=== PATIENT | male | born 1955 | race Caucasian/White ===

== ENCOUNTER 2019-09-10 07:57 | Outpatient (CLI) | payer MEDICARE, SELFPAY ==
--- NOTE | 2019-09-22 07:01 | SLEEP_ITS ---
CPAP Titration DATE OF STUDY: 09/10/2019 ORDERING PROVIDER: Santa Shanks, nurse practitioner. REASON FOR STUDY: Obstructive sleep apnea syndrome. HISTORY: This patient is a 64-year-old male, 70 inches tall, weighing 331 pounds with a body mass index of 47.5. On 08/14/2019, he underwent a basic nocturnal polysomnogram for complaints of loud snoring and gasping for breath at night. He did not meet criteria during the baseline study to proceed with CPAP. There is a prior history of wearing CPAP. His AHI on this most recent study was 69.8, mainly obstructive events with a low sleep efficiency. He had very little REM. He did not have supine sleep. He proceeds with CPAP on this test. MEDICAL COMORBIDITIES: Acid reflux, hyperlipidemia, hypertension, depression. MEDICATIONS: 1. Omeprazole 20 mg a day. 2. Atorvastatin 40 mg a day. 3. Lisinopril 20 mg a day. 4. Lorazepam 1 mg p.r.n. HABITS: There is a history of smoking tobacco. Five caffeinated beverages a day. Two alcoholic beverages a day. DESCRIPTION OF THE STUDY: On the [place] Sleepiness Scale, his score was 17. This was conducted as an attended CPAP titration using the [employer] multiple channel system including EOG, EEG, submental EMG, EKG, nasal and oral airflow using thermistors and nasal pressure sensors, chest and abdominal belts, body position data, and pulse oximetry. The study was scored using [facility] guidelines. Duration of the study was 424.7 minutes. The sleep time was 182.4 minutes. He had low sleep efficiency once again of 42.9%. Sleep latency was prolonged 57.3 minutes. The patient noted that he normally goes to bed at 2 a.m., which is not conducive to having a sleep study in the lab as the bedtime is around 10 p.m. regardless of whether or not a sleeping pill is taken. There was no mention of taking a sleeping pill. The REM latency was also prolonged at 237 minutes. He had 27 awakenings and spent 50.4% of the test, 185 minutes awake after sleep onset. Sleep architecture was abnormal with 9.9% stage 1 sleep, 34.7% stage 2 sleep. No stage 3 sleep and only 5% stage REM, 18.5 minutes. Sleep was fragmented with a prolonged sleep onset, prolonged REM latency. Significant wake throughout the study and fragmented sleep. He did not spend any of this test supine. The overall AHI was 4.3. There was no supine REM. The patient had 2 obstructive hypopneas in nonsupine REM for an index of 6.5. He had 4 obstructive apneas, 1 central apnea, and 4 obstructive hypopneas in nonsupine non-REM for an index of 4.0. The non-supine index was 4.3. There was no supine index as there was no supine sleep. He had 70 desaturations of 4% or greater for an index of 1.0. He had a minimum saturation of 89% with 1 minute spent below 88%, 0.2% of the study. Mean saturation was 96%. Snoring was light intermittent 219 episodes. Arousals: 162 arousals for an index of 22.9. He had 5 apneas for an index of 0.7, one hypopnea for an index of 0.1, 27 snores for an index of 3.8, 72 spontaneous for an index of 10.2 and 57 limb movements for an index of 8.1. Limb movements: 231 isolated limb movements for an index of 76, 7 periodic limb movements for an index of 2.3. EKG: Mean heart rate was 55, sinus bradycardia. No arrhythmia. EEG: Unremarkable. The patient used his own nasal mask from home of [employer]Med N30 nasal mask, medium size. He started at 5 cm of water pressure with heated humidity. He wanted to wake up at 6 in the morning to get his grand children to school. He was not able to sleep in the supine position because he could not become comfortable on his back. His final pressure was 14 cm. At that setting, the patient had 1 hour 29 minutes in bed, 3 minutes of REM, 57 minutes of non-REM,
== END 2019-09-10 07:58 | disposition home or self-care (01) ==
LOC: ANHCSM 07:58
PROVIDERS: Visit Provider Nurse Practitioner
DX: G47.33 Obstructive sleep apnea (adult) (pediatric) (principal); Z99.89 Dependence on other enabling machines and devices; Z68.42 Body mass index [BMI] 45.0-49.9, adult; Z72.821 Inadequate sleep hygiene
CPT/HCPCS: 95811

== ENCOUNTER 2019-12-24 08:26 | Outpatient (CLI) | payer MEDICARE, SELFPAY ==
--- NOTE | ~2019-12-24 | CT_ITS ---
EXAMINATION: CT lung screening DATE: 12/24/2019 08:51 INDICATION: R91.1 Solitary pulmonary nodule. Past smoker. TECHNIQUE: Computed tomography (CT) of the chest was performed without intravenous contrast. Addition al 3D reconstructions utilizing coronal maximum intensity projection (MIP) were performed. Automated exposure control and iterative reconstruction technique were employed. The dose-length product was 53 1.23 mGy-cm. COMPARISON: 10/27/2018 FINDINGS: No interval change in a 9 x 8 mm nodule in the anterior segment of the right upper lobe. 2 mm calcifi ed nodule in the left lower lobe. Mild dependent atelectasis/scarring along the periphery of the bila teral lower lobes. Mild emphysema. No pneumonia, pulmonary edema or pleural effusion. Heart size is n ormal. Atherosclerotic coronary artery calcifications. Aortic valve Calcination. No pericardial effus ion. Thoracic aorta is normal in caliber. No pathologically enlarged thoracic or upper abdominal lymp hadenopathy. Diffuse hepatic steatosis. 3.0 cm low-attenuation left renal cyst. Mild thoracic spondyl osis. IMPRESSION: 1. No interval change in a 9 x 8 mm right upper lobe nodule. Would recommend additional one-year foll ow-up low-dose noncontrast chest CT. 2. Mild emphysema. 3. Diffuse hepatic steatosis. Reviewed, dictated and finalized at location A. IMPRESSION: 1. No interval change in a 9 x 8 mm right upper lobe nodule. Would recommend ad ditional one-year follow-up low-dose noncontrast chest CT. 2. Mild emphysema. 3. Diffuse hepatic steatosis.
== END 2019-12-24 08:27 | disposition home or self-care (01) ==
PROVIDERS: PCP Internal Medicine; Visit Provider Internal Medicine
DX: R91.1 Solitary pulmonary nodule (principal); Z12.2 Encounter for screening for malignant neoplasm of respiratory organs; Z87.891 Personal history of nicotine dependence; J43.9 Emphysema, unspecified; K76.0 Fatty (change of) liver, not elsewhere classified
CPT/HCPCS: G0297

== ENCOUNTER → 2020-05-17 10:15 | Outpatient (REF) | payer MEDICARE, SELFPAY | LOC: ANHLAB 10:15 | PROVIDERS: PCP Internal Medicine; Visit Provider Nurse Practitioner | DX: D49.2 Neoplasm of unspecified behavior of bone, soft tissue, and skin (principal); L57.8 Other skin changes due to chronic exposure to nonionizing radiation | CPT/HCPCS: 88305 ==

== ENCOUNTER 2022-03-08 08:38 | Outpatient (CLI) | payer MEDICARE, SELFPAY ==
--- NOTE | ~2022-03-08 | CT_ITS ---
EXAMINATION: CT lung screening DATE: 03/08/2022 09:08 INDICATION: Personal history of nicotine dependence, current smoker with 35 pack year history TECHNIQUE: Computed tomography (CT) of the chest was performed without intravenous contrast. The dose -length product (DLP) was 642.97 mGy-cm. Automated exposure control and iterative reconstruction tech [employer] were employed. COMPARISON: 12/24/2019, 08/13/2018 FINDINGS: There is a stable 9 mm nodule of the right upper lobe. No new pulmonary nodules are identif ied. There is mild emphysema. Minimal dependent atelectasis is noted. The lungs are free of focal air space opacities. No pleural effusion or pneumothorax. No pathologically enlarged thoracic lymph nodes are identified. The heart size is normal. Calcified coronary artery atherosclerosis is noted. There is subendocardial fat deposition in the interventricular septum and inferior wall of the left ventric le, likely reflecting prior myocardial infarction. There is mild thoracic spondylosis. IMPRESSION: 1. Lung-RADS category 2: Benign appearance or behavior. Continue annual screening with noncontrast lo w-dose chest CT in 12 months. Reviewed, dictated and finalized at location A. IMPRESSION: 1. Lung-RADS category 2: Benign appearance or behavior. Continue annual screeni ng with noncontrast low-dose chest CT in 12 months.
== END 2022-03-08 08:39 | disposition home or self-care (01) ==
PROVIDERS: PCP Internal Medicine; Visit Provider Internal Medicine
DX: Z12.2 Encounter for screening for malignant neoplasm of respiratory organs (principal); Z87.891 Personal history of nicotine dependence
CPT/HCPCS: 71271

== ENCOUNTER 2022-09-21 16:29 | Emergency (ER) | payer MEDICARE, SELFPAY ==
[2022-09-21 16:39] VITALS: BP 148/71; PULSE 76; RESP 18; TEMP 36.8; O2SAT 99
--- NOTE | 2022-09-21 17:01 | ED.WOUNDLAC ---
HPI - Wound/Laceration General Chief Complaint: Wound/Laceration Stated Complaint: non healing wound left leg Time Seen by Provider: 09/21/22 17:01 Source: patient Mode of arrival: ambulatory Limitations: no limitations History of Present Illness HPI narrative: 67-year-old male presents with complaint of redness, swelling, warmth to left lower extremity. Patient fell approximately 1 week ago while walking down steps [place] a [place] in [place]. Patient has for open abrasions to left lower extremity from hitting wood stairs. tetanus up-to-date. Afebrile. States redness and swelling has gotten progressively worse. Patient has been applying Neosporin with no improvement of symptoms. History of diabetes. States blood sugars run 140 to 180s. All systems reviewed and negative except as noted above. Related Data Home Medications Medication Instructions Recorded Confirmed aspirin 81 mg chewable tablet 81 mg PO DAILY 09/21/22 09/21/22 Allergies Allergy/AdvReac Type Severity Reaction Status Date / Time No Known Allergies Allergy Mild Verified 09/21/22 16:45 Review of Systems Review of Systems: CONSTITUTIONAL: Denies fever, chills, or sweats. EYES: Denies visual changes, redness, or discharge. ENT: Denies rhinorrhea, congestion, sore throat, or otalgia. CARDIOVASCULAR: Denies chest pain, palpitations, or edema. RESPIRATORY: Denies cough or dyspnea. GASTROINTESTINAL: Denies abdominal pain, nausea, vomiting, or diarrhea. GENITOURINARY: Denies dysuria or hematuria. SKIN: Denies rash or itching. Reports redness swelling, pain open wounds to left lower extremities. MUSCULOSKELETAL: Denies back pain, joint pain, or myalgia. NEUROLOGIC: Denies headache, numbness, or weakness. PSYCHIATRIC: Denies anxiety or depression. All other systems reviewed are negative, except as documented in HPI. [facility] Past Medical History Medical History Essential (primary) hypertension Mixed hyperlipidemia MARY ANN on CPAP Type 2 diabetes mellitus Surgical History Surgical History History of bowel resection History of colon resection Hx of cardiac cath Family History Family History Other Diabetes mellitus Social History Social History Smoking packs per day: 1 Smoking cigarettes per day: 20.0 Years smoked: 40 Smoking pack-years: 40.00 Smoking status: Former smoker Tobacco type: cigarettes Second hand tobacco smoke exposure: Yes Smoking end date: 07/22/22 Alcohol intake: current Alcohol use details: socially Substance use: never Substance use type: does not use Lack of Transportation: No Lack of Food: Never True Current Housing: I Have Housing Concerned About Future Housing: No Difficulty Paying Gas/Electric Bills: No Difficulty Paying for Meds: No Currently Unemployed: No Education: High School Diploma/GED Difficulty w/ Childcare or Family Care: No Comments At time of signature, agree with nursing past medical, surgical, social and family history. There is no relevant family history pertinent to the presenting complaint. Exam Narrative: GENERAL: This is a well-nourished, well-developed patient, in no apparent distress. HEAD: normocephalic, atraumatic. EYES: PERRL. Sclera clear/white. Vision is grossly intact. EARS: External ears normal NOSE: External nose normal NECK: Neck supple, non-tender without lymphadenopathy, masses or thyromegaly. CARDIOVASCULAR: Regular rate and rhythm without murmurs, gallops, or rubs. RESPIRATORY: Clear to auscultation. Breath sounds equal bilaterally. No wheezes, rales, or rhonchi. SKIN: warm, Dry, intact with no suspicious lesions or rash, good texture and turgor. NEURO: awake, alert, and oriented to person, place and time. There were no obvious foc
== END 2022-09-21 17:14 | disposition home or self-care (01) ==
PROVIDERS: Emergency Provider Nurse Practitioner Family; PCP Internal Medicine
DX: L03.116 Cellulitis of left lower limb (principal); E78.2 Mixed hyperlipidemia; I10 Essential (primary) hypertension; E11.9 Type 2 diabetes mellitus without complications; Z87.891 Personal history of nicotine dependence
CPT/HCPCS: 87070; 87075; 87077; 87147; 87181; 87186; 87205; 99213; G0463

== ENCOUNTER 2022-11-20 08:34 | Outpatient (CLI) | payer MEDICARE, SELFPAY ==
--- NOTE | 2022-11-20 | ECHO_ITS ---
Patient Info Name: Venkat Santos Age: 67 years : 1955 Gender: Male Ht: 70 in Wt: 305 lbs BSA: 2.68 m2 HR: 65 bpm BP: 150 / 87 mmHg Heart Rhythm: Sinus Rhythm Technical Quality: Fair Exam Date: 11/20/2022 9:08 AM Exam Location: [facility] Patient Status: Outpatient Admit Date: 11/20/2022 Staff Ordering Physician: Gloria Honeycutt MD Manager Environmental Affairs: Rosa Avila RDCS Attending Provider: Gloria Honeycutt MD Referring Physician: Yinka BERRY; Exam Type: CA echo doppler color flow Study Info Indications R06.09 - Other forms of dyspnea Complete two-dimensional, color flow and Doppler transthoracic echocardiogram is performed. Summary 1. Complete two-dimensional, color flow and Doppler transthoracic echocardiogram is performed. 2. Left ventricular chamber dimension is normal. 3. Left ventricular systolic function is normal, estimated at 60-65%. 4. There is mildly increased left ventricular wall thickness. 5. The left ventricular diastolic function is grade I diastolic dysfunction. 6. Right ventricular systolic function is normal. 7. There is moderate aortic valve calcification. 8. The mitral valve has thickened leaflets. 9. There is trace mitral valve regurgitation. 10. There is trace tricuspid valve regurgitation. 11. There is small anterior pericardial effusion. Left Ventricle Left ventricular chamber dimension is normal. Left ventricular systolic function is normal, estimated at 60-65%. There is mildly increased left ventricular wall thickness. The left ventricular diastolic function is grade I diastolic dysfunction. Right Ventricle Right ventricular chamber dimension is normal. Right ventricular systolic function is normal. Left Atria Left atrial chamber dimension is normal. Right Atria Right atrial chamber dimension is normal. Atrial Septum Intact interatrial septum visualized by color flow imaging. Aortic Valve The aortic valve is not well visualized. There is no aortic valve stenosis. There is no aortic valve regurgitation. There is moderate aortic valve calcification. Pulmonic Valve The pulmonic valve is not well visualized. Mitral Valve The mitral valve has thickened leaflets. There is no mitral valve stenosis. There is trace mitral valve regurgitation. Tricuspid Valve There is trace tricuspid valve regurgitation. Pericardium/Pleural The pericardium appears epicardial fat pad. There is small anterior pericardial effusion. Inferior Vena Cava Normal inferior vena cava with <50% collapse upon inspiration consistent with elevated right atrial pressure, 8 mmHg. Aorta The aortic root size at the sinus of Valsalva is normal. Left Ventricular Outflow Tract Name Value Normal LVOT 2D LVOT Diameter 2.0 cm LVOT Doppler LVOT Peak Gradient 4 mmHg LVOT Mean Gradient 3 mmHg LVOT VTI 22 cm LVOT VTI/AV VTI Ratio 0.7 LVOT Stroke Volume 72 ml LVOT CO 4.6 l/min LVOT CI 1.7 l/min/m2 Pulmonic Valve
== END 2022-11-20 08:35 | disposition home or self-care (01) ==
PROVIDERS: PCP Internal Medicine; Visit Provider Internal Medicine Cardiovascular Disease
DX: R06.09 Other forms of dyspnea (principal); I25.118 Atherosclerotic heart disease of native coronary artery with other forms of angina pectoris; I70.0 Atherosclerosis of aorta; I31.39 Other pericardial effusion (noninflammatory)
CPT/HCPCS: 93306

== ENCOUNTER 2023-05-14 00:14 | Day surgery (SDC) | payer MEDICARE, SELFPAY ==
[2023-05-03 14:19] VITALS: BMI 41.9
--- NOTE | 2023-05-14 07:50 | PM.HPGS ---
History of Present Illness History of Present Illness Consent: Risks, benefits, and alternatives have been discussed and questions answered. Patient agrees to proceed with procedure. Chief complaint: neoplasm screening Narrative: Venkat Santos is a 67 year old male Presents for screening colonoscopy. Patient's current weight appetite and bowel movements are normal. Patient denies abdominal pain. He has had no bleeding. Family history noncontributory. Patient presents today for screening colonoscopy. Patient has a history of bowel resection for rather large polyp 10 years ago. Follow-up colonoscopy 5 years did reveal adenomatous colon polyps. Patient presents today for neoplasia screening. Review of Systems Review of Systems: Review of systems noncontributory. [facility] Past Medical History Medical History Chronic kidney disease (CKD) stage G3a/A2, moderately decreased glomerular filtration rate (GFR) between 45-59 mL/min/1.73 square meter and albuminuria creatinine ratio between 30-299 mg/g Erectile dysfunction Essential (primary) hypertension Gastroesophageal reflux disease Lung nodule Mixed hyperlipidemia MARY ANN on CPAP Type 2 diabetes mellitus Surgical History Surgical History History of bowel resection History of colon resection Hx of cardiac cath Family History Family History Other Diabetes mellitus Social History Social History Smoking packs per day: 1 Smoking cigarettes per day: 20.0 Years smoked: 35 Smoking pack-years: 35.00 Smoking status: Current every day smoker Tobacco type: cigarettes Second hand tobacco smoke exposure: Yes Alcohol intake: current Drinks per week: 10 Alcohol use details: beer Substance use: never Substance use type: does not use Lack of Transportation: No Lack of Food: Never True Current Housing: I Have Housing Concerned About Future Housing: No Difficulty Paying Gas/Electric Bills: No Difficulty Paying for Meds: No Currently Unemployed: No Education: High School Diploma/GED Difficulty w/ Childcare or Family Care: No Living arrangements: with family Spiritual care concerns: No Meds Home Medications and Allergies Home Medications Medication Instructions Recorded Confirmed Type lorazepam 1 mg tablet 1 mg PO TID PRN anxiety #180 tabs 05/26/19 05/03/23 Rx lancets (Accu-Chek Fastclix Lancet #100 ea 11/09/19 10/22/22 Rx Drum) clindamycin phosphate 1 % topical 1 applic topical BID PRN infection 11/17/19 05/03/23 Rx gel #30 grams blood-glucose meter (Accu-Chek #1 ea 04/11/21 10/22/22 Rx Madeline Plus Meter) aspirin 81 mg chewable tablet 81 mg PO DAILY 09/21/22 05/03/23 History blood sugar diagnostic (Accu-Chek #100 ea 10/24/22 Rx Madeline Plus test strips) coenzyme Q10 100 mg capsule (Co 100 mg PO DAILY 12/31/22 05/03/23 History Q-10) sod picosulf 10 mg-magnes 3.5 175 ml PO DAILY 2 doses #350 mL 04/08/23 Rx gram-citric 12 gram/175 mL oral solution (Clenpiq) cetirizine 10 mg capsule (Zyrtec) 10 mg PO DAILY 05/03/23 05/03/23 History nystatin 100,000 unit/gram topical 1 applic topical BID PRN other 05/03/23 05/03/23 History powder semaglutide 2 mg/dose (8 mg/3 mL) 2 mg subcut WEEKLY 05/03/23 05/03/23 History subcutaneous pen injector (Ozempic) sildenafil (pulm.hypertension) 20 20 mg PO .COMPLEX PRN Erectile 05/03/23 05/03/23 History mg tablet Dysfunction atorvastatin 40 mg tablet See Rx Instructions .Route 05/13/23 Rx .COMPLEX #100 tabs lisinopril 20 mg tablet See Rx Instructions .Route 05/13/23 Rx .COMPLEX #100 tabs omeprazole 20 mg capsule,delayed See Rx Instructions .Route 05/13/23 Rx release .COMPLEX #100 caps Allergies Allergy/AdvReac Type Severity Reaction
[2023-05-14 07:56] VITALS: BP 142/61; PULSE 68; RESP 20; TEMP 36.6; O2SAT 100
[2023-05-14] MEDS: LACTATED RINGERS 1,000 ML 150 ML IV CONT (08:11)
[2023-05-14 08:15] LABS: Glucose Point of Care 127 mg/dl (65-105)
--- NOTE | 2023-05-14 08:39 | WPDANESEPPF ---
Anes - Initial Pre Proc Eval Procedure: Operation Date: 05/14/23 09:00 Proposed Procedures p Screening Colonoscopy - Neri Uriostegui MD Date/Time: 05/14/23 08:39 Surgeon: Neri Uriostegui MD Pre Op Diagnosis: neoplasm screening Patient Data Age: 67 Gender: M Height: 1.78 m Weight: 129.2 kg Last Vital Signs Temp 97.8 F 05/14/23 07:56 Pulse 68 05/14/23 07:56 Resp 20 05/14/23 07:56 BP 142/61 H 05/14/23 07:56 Pulse Ox 100 05/14/23 07:56 O2 Del Method Room Air 05/14/23 07:56 Allergies Allergy/AdvReac Type Severity Reaction Status Date / Time No Known Allergies Allergy Mild Verified 05/14/23 07:54 Home Medications Medication Instructions Recorded Confirmed Type lorazepam 1 mg tablet 1 mg PO TID PRN anxiety #180 tabs 05/26/19 05/03/23 Rx lancets (Accu-Chek Fastclix Lancet #100 ea 11/09/19 10/22/22 Rx Drum) clindamycin phosphate 1 % topical 1 applic topical BID PRN infection 11/17/19 05/03/23 Rx gel #30 grams blood-glucose meter (Accu-Chek #1 ea 04/11/21 10/22/22 Rx Madeline Plus Meter) aspirin 81 mg chewable tablet 81 mg PO DAILY 09/21/22 05/03/23 History blood sugar diagnostic (Accu-Chek #100 ea 10/24/22 Rx Madeline Plus test strips) coenzyme Q10 100 mg capsule (Co 100 mg PO DAILY 12/31/22 05/03/23 History Q-10) cetirizine 10 mg capsule (Zyrtec) 10 mg PO DAILY 05/03/23 05/03/23 History nystatin 100,000 unit/gram topical 1 applic topical BID PRN other 05/03/23 05/03/23 History powder semaglutide 2 mg/dose (8 mg/3 mL) 2 mg subcut WEEKLY 05/03/23 05/03/23 History subcutaneous pen injector (Ozempic) sildenafil (pulm.hypertension) 20 20 mg PO .COMPLEX PRN Erectile 05/03/23 05/03/23 History mg tablet Dysfunction atorvastatin 40 mg tablet See Rx Instructions .Route 05/13/23 05/14/23 Rx .COMPLEX #100 tabs lisinopril 20 mg tablet See Rx Instructions .Route 05/13/23 05/14/23 Rx .COMPLEX #100 tabs omeprazole 20 mg capsule,delayed See Rx Instructions .Route 05/13/23 05/14/23 Rx release .COMPLEX #100 caps Laboratory Tests 05/14/23 08:08 POC Capillary Glucose 127 H mg/dl (65-105) Patient hx anesthesia problems: none Family hx anesthesia problems: none Results Review: All pre-operative results and documents have been reviewed as part of the pre-operative evaluation. [facility] Past Medical History Medical History Chronic kidney disease (CKD) stage G3a/A2, moderately decreased glomerular filtration rate (GFR) between 45-59 mL/min/1.73 square meter and albuminuria creatinine ratio between 30-299 mg/g Erectile dysfunction Essential (primary) hypertension Gastroesophageal reflux disease Lung nodule Mixed hyperlipidemia MARY ANN on CPAP Type 2 diabetes mellitus Surgical History Surgical History History of bowel resection History of colon resection Hx of cardiac cath Family History Family History Other Diabetes mellitus Social History Social History Smoking packs per day: 1 Smoking cigarettes per day: 20.0 Years smoked: 35 Smoking pack-years: 35.00 Smoking status: Current every day smoker Tobacco type: cigarettes Second hand tobacco smoke exposure: Yes Alcohol intake: current Drinks per week: 10 Alcohol use details: beer Substance use: never Substance use type: does not use Lack of Transportation: No Lack of Food: Never True Current Housing: I Have Housing Concerned About Future Housing: No Difficulty Paying Gas/Electric Bills: No Difficulty Paying for Meds: No Currently Unemployed: No Education: High School Diploma/GED Difficulty w/ Childcare or Family Care: No Living arrangements: with family Spiritual care concerns: No Anes - Eval Final PreProcedure Day of Procedure 10
[2023-05-14 09:10] VITALS: BP 116/53; PULSE 64; RESP 15; O2SAT 98
[2023-05-14 09:20] VITALS: BP 109/51; PULSE 58; RESP 16; O2SAT 98
[2023-05-14 09:30] VITALS: BP 136/67; PULSE 57; RESP 15; O2SAT 100
== END 2023-05-14 09:32 | disposition home or self-care (01) ==
PROVIDERS: PCP Family Medicine; Visit Provider Internal Medicine Gastroenterology
PROC: 0DJD8ZZ Inspection of Lower Intestinal Tract, Via Natural or Artificial Opening Endoscopic (ICD-10-PCS; CPT 45378; principal; 2023-05-14 09:00)
DX: Z12.11 Encounter for screening for malignant neoplasm of colon (principal); D12.2 Benign neoplasm of ascending colon; K62.1 Rectal polyp; K64.8 Other hemorrhoids; I12.9 Hypertensive chronic kidney disease with stage 1 through stage 4 chronic kidney disease, or unspecified chronic kidney disease; E11.22 Type 2 diabetes mellitus with diabetic chronic kidney disease; N18.31 Chronic kidney disease, stage 3a; K21.9 Gastro-esophageal reflux disease without esophagitis; E78.2 Mixed hyperlipidemia; G47.33 Obstructive sleep apnea (adult) (pediatric); Z90.49 Acquired absence of other specified parts of digestive tract; F17.210 Nicotine dependence, cigarettes, uncomplicated; E66.01 Morbid (severe) obesity due to excess calories; Z68.41 Body mass index [BMI] 40.0-44.9, adult; Z79.82 Long term (current) use of aspirin; Z79.85 Long-term (current) use of injectable non-insulin antidiabetic drugs
CPT/HCPCS: 45385; 82948; 88305; J2704; J7120

== ENCOUNTER 2023-08-01 07:18 | Outpatient (CLI) | payer MEDICARE, SELFPAY ==
--- NOTE | ~2023-08-01 | CT_ITS ---
CT Scan of the Chest without Contrast: Clinical Indication: Lung cancer screening, personal history of nicotine dependence Technique: Contiguous sections were acquired throughout the chest without intravenous contrast. Dose reduction technique was used on this scan by utilizing automated exposure control and iterative recon struction technique. The dose-length product (DLP) was 495.73 mGy-cm. COMPARISON: 03/08/2022 Findings: There is no evidence of any significant mediastinal, hilar or axillary lymphadenopathy. The mediastin al soft tissues appear normal. There is no evidence of pleural or pericardial effusion. Stable 9 mm right upper lobe pulmonary nodule (axial image 65). Several additional tiny pulmonary nod ules are unchanged. There is a new, subtle curvilinear endotracheal density (axial images 26-33). Images through the upper abdomen reveal no abnormalities. Impression: Lung RADS 4A: Suspicious. 3 month follow-up CT recommended to reassess the new endotracheal density/n odule, which is seen on the current exam. Stable 9 mm right upper lobe pulmonary nodule. Reviewed, dictated and finalized at location M. [employer] [employer] Impression: Lung RADS 4A: Suspicious. 3 month follow-up CT recommended to reassess the new endotracheal density/nodule, which is seen on the current exam. Stable 9 mm right upper lobe pulmonary nodule.
== END 2023-08-01 07:19 | disposition home or self-care (01) ==
PROVIDERS: PCP Family Medicine; Visit Provider Family Medicine
DX: Z12.2 Encounter for screening for malignant neoplasm of respiratory organs (principal); Z87.891 Personal history of nicotine dependence; R91.8 Other nonspecific abnormal finding of lung field
CPT/HCPCS: 71271

== ENCOUNTER 2023-09-27 10:07 | Outpatient (CLI) | payer MEDICARE, SELFPAY ==
--- NOTE | ~2023-09-27 | CT_ITS ---
Clinical Indication: Upper respiratory tract disease, pulmonary nodule CT Scan of the Chest with Contrast: Technique: Contiguous sections were acquired throughout the chest after intravenous administration of 75 cc of Omnipaque 350. Dose reduction technique was used on this scan by utilizing automated exposu re control and iterative reconstruction technique. The dose-length product (DLP) was 873.13 mGy-cm. COMPARISON: 08/01/2023 Findings: There is no evidence of any significant mediastinal, hilar or axillary lymphadenopathy. There is no f illing defect in the pulmonary arterial tree to suggest pulmonary embolus. There is no evidence of ao rtic dissection or aneurysm. There is no evidence of pleural or pericardial effusion. Stable 9 mm right upper lobe pulmonary nodule (axial image 68). Images through the upper abdomen reveal no abnormalities. Impression: Stable 9 mm noncalcified right upper lobe pulmonary nodule. Reviewed, dictated and finalized at [facility]. [facility] CLERK Impression: Stable 9 mm noncalcified right upper lobe pulmonary nodule.
[2023-09-27 10:32] LABS: Estimated Glomerular Filt Rate 40
== END 2023-09-27 10:08 | disposition home or self-care (01) ==
LOC: ANHIMG 10:08
PROVIDERS: PCP Family Medicine; Visit Provider Family Medicine
DX: R91.1 Solitary pulmonary nodule (principal); J39.8 Other specified diseases of upper respiratory tract
CPT/HCPCS: 71260; Q9967

== ENCOUNTER 2025-07-13 08:19 | Outpatient (CLI) | payer MEDICARE, SELFPAY ==
--- NOTE | ~2025-07-13 | CT_ITS ---
EXAMINATION:CT lung screening DATE: 07/13/2025 08:31 INDICATION: Personal history of nicotine dependence. TECHNIQUE: Computed tomography (CT) of the chest was performed without intravenous contrast. Automated exposure control and iterative reconstruction technique were employed. The dose-length product (DLP) was 394.84 mGy-cm. COMPARISON: Chest CT 09/27/2023 FINDINGS: There is mild emphysema. There is a stable 9 mm nodule in right upper lobe. There are few scattered 2 mm nodules in the lungs. A calcified left lung nodule is consistent with old granulomatous disease. There is mild atelectasis bilaterally. No pleural effusion. The heart size is normal. There are coronary artery calcifications. No pericardial effusion. There is mild thoracic spondylosis. IMPRESSION: 1. Lung-RADS category 2: Benign appearance or behavior. Continue annual screening with noncontrast low-dose chest CT in 12 months. Reviewed, dictated and finalized at location [facility]. [facility] [employer] IMPRESSION: 1. Lung-RADS category 2: Benign appearance or behavior. Continue annual screeni ng with noncontrast low-dose chest CT in 12 months.
== END 2025-07-13 08:20 | disposition home or self-care (01) ==
LOC: MICIMG 08:20
PROVIDERS: PCP Family Medicine; Visit Provider Family Medicine
DX: Z12.2 Encounter for screening for malignant neoplasm of respiratory organs (principal); Z87.891 Personal history of nicotine dependence
CPT/HCPCS: 71271